=== PATIENT | female | born 1965 | race Two or more races ===

== ENCOUNTER 2022-01-28 18:06 | Emergency (ER) | payer OTHER ==
[~2022-01-28] VITALS: Ht 160 cm; Wt 59.0 kg
[2022-01-28 20:03] VITALS: BP 144/71
== END 2022-01-28 20:04 | disposition home or self-care (01) ==
LOC: ER 18:08
DX: R10.12 Left upper quadrant pain (principal); R13.10 Dysphagia, unspecified